=== PATIENT | female | born 1955 | race Caucasian/White ===

== ENCOUNTER → 2016-12-13 | Outpatient (CLI) | payer BC ==
[~2016-12-13] MED LIST: ADVAIR INH; ALBU17IN INH; CELE1CAP4; CELEBREX; COUM1TAB17 PO; LEVAINH INH; PERC5TAB12 PO; PERCOCET PO; TYLE167L PO; TYLE325T5 PO; [UNRECOGNIZED DRUG - REMARK] INH
--- NOTE | 2016-12-13 14:47 | REPMRS ---
Patient History The patient states she has not had a clinical breast exam in over a year. Patient is postmenopausal. No known family history of cancer. Digital Mammo Screening Bilat: December 13, 2016 - Exam #: [id number] Bilateral CC and MLO view(s) were taken. Technologist: Juanis Liz Technologist Prior study comparison: July 09, 2014, bilateral digital mammo screening bilat performed at [facility]. May 20, 2009, bilateral digital woman screen mammo performed at [facility]. FINDINGS: There are scattered fibroglandular densities. There has been no change in the appearance of the mammogram from the prior studies. There is a mild amount of residual fibroglandular tissue which is fairly symmetric. There is no interval development of dominant mass, architectural distortion, or clustered microcalcification suggestive of malignancy. ASSESSMENT: BI-RADS/ACR category 1 mammogram. Negative. Recommendation Routine screening mammogram in 1 year (for women over age 40). This mammogram was interpreted with the aid of an FDA-approved computer-aided dectection system. Electronically Signed By: Jeremy Sr MD 12/13/16 [id number]
== END ==
LOC: M RAD 14:17
PROVIDERS: ATTEND Nurse Practitioner Family
DX: Z12.31 Encounter for screening mammogram for malignant neoplasm of breast (principal)

== ENCOUNTER → 2017-05-12 | Outpatient (REF) | payer BC ==
[2017-05-12 16:50] LABS: ESTIMATED AVERAGE GLUCOSE 111 MG/DL (60-110); HEMOGLOBIN A1c 5.5 %
[2017-05-12 17:11] LABS: ALBUMIN 3.9 GM/DL (3.2-5.2); ALBUMIN/GLOBULIN RATIO 1.05 (1.00-1.93); ALKALINE PHOSPHATASE 102 U/L (45-117); ALT/SGPT 24 U/L (12-78); ANION GAP 7 MEQ/L (8-16); AST/SGOT 16 U/L (7-37); BILIRUBIN,TOTAL 0.5 MG/DL (0.2-1.0); BLOOD UREA NITROGEN 16 MG/DL (7-18); CALCIUM LEVEL 9.1 MG/DL (8.8-10.2); CARBON DIOXIDE LEVEL 30 MEQ/L (21-32); CHLORIDE LEVEL 103 MEQ/L (98-107); CHOLESTEROL LEVEL 324 MG/DL (<200); CREATININE FOR GFR 0.65 MG/DL (0.55-1.30); FREE T4 1.04 NG/DL (0.76-1.46); GLOMERULAR FILTRATION RATE > 60.0 (>45); GLUCOSE, FASTING 87 MG/DL (70-100); HDL CHOLESTEROL 72 MG/DL (>40); LDL CHOLESTEROL 238.8 MG/DL (<100); NON-HDL-C 252 MG/DL; SODIUM LEVEL 140 MEQ/L (136-145); TOTAL PROTEIN 7.6 GM/DL (6.4-8.2); TRIGLYCERIDES LEVEL 66 MG/DL (<150)
[2017-05-12 17:16] LABS: BASO % 0.7 % (0.0-1.0); EOS # 0.2 10^3/uL (0.0-0.50); EOS % 3.5 % (0.0-3.0); HEMATOCRIT 48.3 % (36.0-47.0); HEMOGLOBIN 15.8 g/dl (12.0-16.0); IMMATURE GRANULOCYTE % 0.2 % (0-3.0); LYMPH # 1.2 10^3/uL (1.5-4.5); LYMPH % 26.7 % (24.0-44.0); MEAN CORPUSCULAR HEMOGLOBIN 31.9 pg (27.0-33.0); MEAN CORPUSCULAR HGB CONC 32.7 g/dl (32.0-36.5); MEAN CORPUSCULAR VOLUME 97.4 fl (80.0-96.0); MONO # 0.4 10^3/uL (0.0-0.8); MONO % 8.3 % (0.0-5.0); NEUTROPHILS # 2.8 10^3/uL (1.8-7.7); NEUTROPHILS % 60.6 % (36.0-66.0); PLATELET COUNT, AUTOMATED 233 10^3/uL (150-450); RED BLOOD COUNT 4.96 10^6/uL (4.00-5.40); RED CELL DISTRIBUTION WIDTH 13.2 % (11.5-14.5); WHITE BLOOD COUNT 4.6 10^3/uL (4.0-10.0)
== END ==
LOC: M SFHCCLAY 13:53
DX: J45.909 Unspecified asthma, uncomplicated (principal); E66.9 Obesity, unspecified; Z13.1 Encounter for screening for diabetes mellitus

== ENCOUNTER → 2017-08-02 | Day surgery (SDC) | payer BC ==
[~2017-08-02] MED LIST changes: -ADVAIR INH; -ALBU17IN INH; -CELE1CAP4; -CELEBREX; -COUM1TAB17 PO; -LEVAINH INH; +LIDOCAINE 2% INJ 100 MG/5 ML SDV (FOR ANES.) As Ordered; -PERC5TAB12 PO; -PERCOCET PO; +PROPOFOL 200 MG/20 ML VIAL As Ordered; -TYLE167L PO; -TYLE325T5 PO; -[UNRECOGNIZED DRUG - REMARK] INH
[2017-08-02] MEDS: NS 1,000 ML IV (07:30)
== END | disposition home or self-care (01) ==
LOC: M OPP 07:04
DX: Z12.11 Encounter for screening for malignant neoplasm of colon (principal); Z80.0 Family history of malignant neoplasm of digestive organs; J45.909 Unspecified asthma, uncomplicated; Z79.899 Other long term (current) drug therapy; Z78.0 Asymptomatic menopausal state; Z96.653 Presence of artificial knee joint, bilateral; Z82.3 Family history of stroke; Z82.49 Family history of ischemic heart disease and other diseases of the circulatory system
CPT/HCPCS: 45378

== ENCOUNTER → 2018-01-31 | Outpatient (CLI) | payer BC | LOC: M WHC 13:46 | DX: Z12.31 Encounter for screening mammogram for malignant neoplasm of breast (principal); Z78.0 Asymptomatic menopausal state | CPT/HCPCS: 77067 ==

== ENCOUNTER → 2018-02-17 | Day surgery (SDC) | payer BC ==
[~2018-02-17] MED LIST changes: +LR 1,000 ML IV; +METOCLOPRAMIDE INJ 10MG/2ML VIAL (J2765) IV; +MIDAZOLAM INJ 2 MG/2 ML VIAL (J2250) As Ordered; +ONDANSETRON 4MG/2ML VIAL (J2405) IV; +PERCOCET 5MG/325MG TAB PO; +dexameTHASONE 4 MG/ML 1ML VIAL (J1100) As Ordered; +fentaNYL 100 MCG/2 ML INJECTION (J3010) As Ordered
[2018-02-17] MEDS: LR 1,000 ML IV (08:25)
[2018-02-17] MEDS: LIDOCAINE 1% MDV 20ML VIAL As Ordered (10:05)
== END | disposition home or self-care (01) ==
LOC: M SDC 08:02
DX: N95.0 Postmenopausal bleeding (principal); R93.89 Abnormal findings on diagnostic imaging of other specified body structures; J30.89 Other allergic rhinitis; Z78.0 Asymptomatic menopausal state; Z96.653 Presence of artificial knee joint, bilateral
CPT/HCPCS: 58558

== ENCOUNTER → 2018-03-30 | Outpatient (REF) | payer BC ==
[~2018-03-30] MED LIST changes: +ADV100INH INH; +ADVAIR INH; +ALBU17IN INH; +CELE1CAP4; +CELEBREX; +COUM1TAB17 PO; +LEVAINH INH; -LIDOCAINE 2% INJ 100 MG/5 ML SDV (FOR ANES.) As Ordered; -LR 1,000 ML IV; -METOCLOPRAMIDE INJ 10MG/2ML VIAL (J2765) IV; -MIDAZOLAM INJ 2 MG/2 ML VIAL (J2250) As Ordered; -ONDANSETRON 4MG/2ML VIAL (J2405) IV; +PERC5TAB12 PO; -PERCOCET 5MG/325MG TAB PO; +PERCOCET PO; +PROAAER10 INH; -PROPOFOL 200 MG/20 ML VIAL As Ordered; +TYLE167L PO; +TYLE325T5 PO; +[UNRECOGNIZED DRUG - REMARK] INH; -dexameTHASONE 4 MG/ML 1ML VIAL (J1100) As Ordered; -fentaNYL 100 MCG/2 ML INJECTION (J3010) As Ordered
== END ==
LOC: M SFHCPLAZ 17:27
PROVIDERS: ATTEND Dermatology
DX: L57.0 Actinic keratosis (principal); D22.39 Melanocytic nevi of other parts of face; L56.8 Other specified acute skin changes due to ultraviolet radiation

== ENCOUNTER → 2018-04-13 | Outpatient (REF) | payer BC | LOC: M SFHCPLAZ 17:15 | PROVIDERS: ATTEND Dermatology | DX: D22.39 Melanocytic nevi of other parts of face (principal); D23.39 Other benign neoplasm of skin of other parts of face ==